=== PATIENT | female | born 1960 | race African-American/Black ===

== ENCOUNTER → 2016-08-23 | Outpatient (CLI) | payer BC ==
[2014-06-30 12:15] VITALS: BP 146/78
[~2016-08-23] MED LIST: CHLO500T53 PO; GABA-586 PO
--- NOTE | 2016-08-23 11:45 | RAD ---
Chest, 2 views, 08/23/2016: History: Tobacco abuse, fatigue, shortness of breath The heart size and pulmonary vascularity are normal. No pulmonary infiltrates are seen. There is no evidence of pleural fluid. Mild spurring is present in the spine. IMPRESSION: No acute cardiopulmonary abnormality is detected.
== END | disposition home or self-care (01) ==
LOC: DXRADRC 09:46
PROVIDERS: ATTEND Nurse Practitioner Family
DX: Z72.0 Tobacco use (principal); R53.83 Other fatigue; R06.02 Shortness of breath
CPT/HCPCS: 71020

== ENCOUNTER → 2017-05-22 | Outpatient (CLI) | payer BC ==
[2014-06-30 12:15] VITALS: BP 146/78
--- NOTE | 2017-05-23 08:37 | RAD ---
Indication: Chest tightness and shortness of air. Time of exam 1803 hours. No prior studies are available for comparison. FINDINGS: The heart size is normal. The lungs are clear. No pleural effusion or pneumothorax is identified. The pulmonary vascularity is normal. IMPRESSION: No acute abnormality detected.
== END | disposition home or self-care (01) ==
LOC: RAD 17:54
PROVIDERS: ATTEND Nurse Practitioner Family
DX: R06.2 Wheezing (principal); R07.89 Other chest pain; Z72.89 Other problems related to lifestyle; Z72.0 Tobacco use
CPT/HCPCS: 71020

== ENCOUNTER → 2019-08-07 | Outpatient (CLI) | payer BC ==
[2014-06-30 12:15] VITALS: BP 146/78
--- NOTE | 2019-08-07 19:18 | RAD ---
CHEST PA LATERAL Technique: PA and lateral views of the chest were obtained. Clinical History: Cough Comparison: May 22, 2017. Findings: The heart and pulmonary vasculature appear within normal limits. There is linear opacities in the lung bases left worse than right. The pleural margins are clear. Impression: Basal infiltrates could be discoid atelectasis or pneumonia. Electronically signed by: Leonardo Mcintosh III, MD (08/07/2019 7:15 PM) [id number]
== END | disposition home or self-care (01) ==
LOC: RAD 18:52
PROVIDERS: ATTEND Physician Assistant
DX: R91.8 Other nonspecific abnormal finding of lung field (principal)
CPT/HCPCS: 71046

== ENCOUNTER 2019-08-22 18:08 | Inpatient (IN) | payer BC ==
[~2019-08-22] VITALS: Ht 167.6 cm; Wt 79.4 kg
--- NOTE | 2019-08-22 18:11 | PHYS DOC ---
Past History Past Medical History: Anxiety, Bronchitis Smoking: Less than 1pk/day Adult General Chief Complaint Chief Complaint: SHORTNESS OF BREATH... " I ve been short of breath since August 06.. coughing, fever like... chills... Wheezing..... I hurt all over... I just feel bad.. can't walk a flight of stairs .. with out shortness of breath.. I do somke.. and was around my son and grandson who had = upper respiratory infections and had been in [place] but they came back before the .. they are all fine... 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 " HPI HPI Patient is a 58 year old female who presents with above hx and complaints of dyspnea, subjective fever, chills, non-productive cough, malaise, arthralgia, and myalgia. Pt. sent from Dr. Bangura office for a direct admit, but re- routed to ED for Eval. by Chilo [facility] Pt. also follow with Dr. Stein. Pt reports a upper respiratory complaints starting on August 06. Nonproductive cough, wheezing, malaise, congestion, sneezing, myalgia, arthralgia, and fatigue. Patient evaluated at the [facility] medical clinic on the August 06, no fever was found. Reportedly had some fluid behind TMs, but no erythema. Was started on Tamiflu for 5 days. Flu swabs at [facility] were negative. Patient does not get flu vaccinations. Patient has not had a Pneumovax. Patient's symptoms continued and followed with [facility] and was started on Biaxin. Pt. took it for 4 days, but it upset her stomach and seemed to cause a headache. Pt. stopped Biaxin, was started on Augmentin 875 twice a day.. She took Augmentin approximated 3 days, but it upset her stomach and made her nauseated. Pt. then presented to [place] on and got a shot of Rocephin and started on Levaquin 500 mg she has been on for the last 3 days. Pt. then presented to Dr. Starks office was then to be admitted. Patient denies any specific travel outside the [facility]. Has been in contact with grandson and son who had recently had upper respiratory infections in [place]. . Son and grandson had been in [place] for visit in July but returned prior to the 4th of this month. They have had no symptoms since return to [place]. Patient does smoke she has approximately 30 pack years. Has been told before she's had bronchitis in past. . She has not had a Pneumovax. Patient does not get flu vaccinations. 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 Pt. is very anxious about possible exposure to [place]-19 through work or Son or Grandson. Review of Systems Review of Systems Constitutional: Denies fever or chills [] Eyes: Denies change in visual acuity, redness, or eye pain [] HENT: Denies nasal congestion or sore throat [] Respiratory: Complains of a nonproductive cough, wheezing and shortness of breath [] Cardiovascular: No additional information not addressed in HPI [] GI: Denies abdominal pain, nausea, vomiting, bloody stools or diarrhea [] : Denies dysuria or hematuria [] Musculoskeletal: Denies back pain or joint pain [] Integument: Denies rash or skin lesions [] Neurologic: Denies headache, focal weakness or sensory changes [] Endocrine: Denies polyuria or polydipsia [] All other systems were reviewed and found to be within normal limits, except as documented in this note. Family History Family History Son and grandson had upper respiratory infections while in [place] in Jul. Current Medications Current Medications See nursing for home meds Allergies Allergies Allergies Coded Allergies Type Severity Reaction Last Updated Verified No Known Drug Allergies 06/30/14 No Physical Exam Physical Exam Constitutional: no acute distress, very anxious in appearance. [] HENT: Normocephalic, atraumatic, bilateral external ears normal, oropharynx moist, no oral exudates, nose mild nasal edema in both nasal drainage with clear rhinorrhea Eyes: PERRLA, EOMI, conjunctiva normal, no discharge. [] Neck: Normal range of motion, no tenderness, supple, no stridor. [] Cardiovascular: Bradycardia Heart rate regular rhythm, no murmur [] Lungs & Thorax: Bilateral breath sounds equal apex with few scattered wheezes on auscultation [] Abdomen: Bowel sounds normal, soft, no tenderness, no masses, no pulsatile masses. [] Skin: Warm, dry, no erythema, no rash. [] Back: No tenderness, no CVA tenderness. [] Extremities: No tenderness, no cyanosis, no clubbing, ROM intact, no edema. [No cording in legs Neurologic: Alert and oriented X 3, moves extremities on request, has distal sensory sensation, no focal deficits noted. [] Psychologic: Affect very anxious, judgement normal, mood normal. [] EKG EKG My interpretation EKG shows a sinus rhythm at 63 bpm. No findings acute STEMI of contralateral changes or acute morphology.[] Radiology/Procedures Radiology/Procedures [][address] [address] IMAGING REPORT Signed PATIENT: CARINA BARAKAT ACCOUNT: [id number] : 1960 LOCATION: [address] [place] [address] AGE: 58 SEX: F EXAM STATUS: ADM IN ORD. PHYSICIAN: JEREL ORNELAS MD REASON: Omni 350, 99ml IV.Intractable cough,dyspnea.Hx pneumonia, smoker PROCEDURE: CT ANGIOGRAPHY CHEST CT a chest with contrast dated 08/22/2019. No comparison available. CLINICAL INDICATION: Intractable cough and dyspnea. TECHNIQUE: Per continue his axial imaging the chest performed on the intravenous administration of 99 cc Omnipaque 350. Study performed as dedicated PE protocol with thin cut coronal MIPS 3-D reconstruction. One or more of the following individualized dose reduction techniques were utilized for this examination: 1. Automated exposure control 2. Adjustment of the mA and/or kV according to patient size 3. Use of iterative reconstruction technique. FINDINGS: Heart size within normal limits. No pericardial effusion. There is a low-density collection along the upper margin of the main pulmonary artery that measures 2.8 cm and Hounsfield value of 4, likely a prominent pericardial recess or a prominent pericardial cyst. No mediastinal, hilar or axillary lymphadenopathy. Contrast bolus is adequate. No evidence of central, lobar or segmental pulmonary embolus. Subsegmental branches are not well evaluated based on technique. Thyroid gland unremarkable. Central airways are patent. Linear bands of increased density in the left lower lobe, lingula and right middle lobe, likely scar or atelectasis. No consolidation or pleural effusion. No pneumothorax. Limited images of the upper abdomen are unremarkable. No acute bony abnormality. Multilevel spondylosis. IMPRESSION: 1. No evidence of central, lobar or segmental pulmonary embolus. 2. Mild patchy and linear bibasilar opacity, likely scar or atelectasis. Otherwise clear lungs. 3. There is a well-circumscribed low-density focus within the anterior superior mediastinum which is indeterminate but probably represents a prominent pericardial recess or pericardial cyst or duplication cyst. Electronically signed by: Denis Rowland MD (08/22/2019 11:02 PM) [id number] DICTATED AND SIGNED BY: DENIS ROWLAND MD DATE: 08/22/192301 CC: PAPI BANGURA MD; JEREL ORNELAS MD; ANGEL STEIN MD ~ [place] [address] IMAGING REPORT Signed PATIENT: CARINA BARAKAT ACCOUNT: [id number] : 1960 LOCATION: ER AGE: 58 SEX: F EXAM STATUS: REG ER ORD. PHYSICIAN: JEREL ORNELAS MD REASON: Dyspnea- Recent Dx Pneumonia and bronchitis PROCEDURE: CHEST PA & LATERAL Two-view chest dated 08/22/2019. Comparison made to 08/07/2019. CLINICAL INDICATION: Dyspnea. FINDINGS: PA and lateral views the chest were obtained. Heart and mediastinal contours are stable. Lungs are clear. No consolidation or pleural effusion. No pneumothorax. IMPRESSION: No acute radiographic abnormality. Electronically signed by: Denis Rowland MD (08/22/2019 8:48 PM) [id number] DICTATED AND SIGNED BY: DENIS ROWLAND MD DATE: 08/22/192047 CC: JEREL ORNELAS MD; ANGEL STEIN MD ~ Course & Med Decision Making Course & Med Decision Making Pertinent Labs and Imaging studies reviewed. (See chart for details) Patient is Dr. Starks for further evaluation and treatment. Patient was danielito eugenio on respiratory isolation. Hospital protocol. Impression: 1. Dyspnea 2. Cough 3. Viral syndrome 4. Bronchitis 5. Tobacco Use 6. Hx. Anxiety [] Dragon Disclaimer Dragon Disclaimer This electronic medical record was generated, in whole or in part, using a voice recognition dictation system. Departure Departure: Disposition: 01 HOME/RESIDENCE PRIOR TO ADM Condition: STABLE Referrals: ANGEL STEIN MD (PCP) Rosalba Disclaimer This chart was dictated in whole or in part using Voice Recognition software in a busy, high-work load, and often noisy Emergency Department environment. It may contain unintended and wholly unrecognized errors or omissions. Dragon Disclaimer This chart was dictated in whole or in part using Voice Recognition software in a busy, high-work load, and often noisy Emergency Department environment. It may contain unintended and wholly unrecognized errors or omissions. JEREL ORNELAS MD Aug 22, 2019 18:10
[2019-08-22] MEDS ORDERED: IV RINGERS SOLUTION,LACTATED 1,000 ML IV SCH (18:32)
[2019-08-22 19:07] LABS: BASO # 0.1 x10^3/uL (0.0-0.2); BASO % 1 % (0-3); EOS # 0.1 x10^3/uL (0.0-0.7); EOS % 2 % (0-3); HEMATOCRIT 41.6 % (36.0-47.0); HEMOGLOBIN 14.2 g/dL (12.0-15.5); LYMPH # 2.9 x10^3/uL (1.0-4.8); LYMPH % 43 % (24-48); MEAN CORPUSCULAR HEMOGLOBIN 32 pg (25-35); MEAN CORPUSCULAR HGB CONC 34 g/dL (31-37); MEAN CORPUSCULAR VOLUME 93 fL (79-100); MONO # 0.4 x10^3/uL (0.0-1.1); MONO % 6 % (0-9); NEUT # 3.2 x10^3uL (1.8-7.7); NEUT % 48 % (31-73); PLATELET COUNT 293 x10^3/uL (140-400); RED BLOOD COUNT 4.49 x10^6/uL (3.50-5.40); RED CELL DISTRIBUTION WIDTH 13.6 % (11.5-14.5); WHITE BLOOD COUNT 6.7 x10^3/uL (4.0-11.0)
[2019-08-22 19:16] LABS: CALCIUM 8.9 mg/dL (8.5-10.1); GFR 68.7; POTASSIUM 3.7 mmol/L (3.5-5.1)
[2019-08-22 19:27] LABS: ALBUMIN 3.6 g/dL (3.4-5.0); DIRECT BILIRUBIN 0.1 mg/dL (0.0-0.2); MAGNESIUM 1.9 mg/dL (1.8-2.4); TOTAL BILIRUBIN 0.4 mg/dL (0.2-1.0)
[2019-08-22 19:33] LABS: INFLUENZA A PATIENT NEGATIVE (NEGATIVE); INFLUENZA B PATIENT NEGATIVE (NEGATIVE)
[2019-08-22] MEDS ORDERED: IPRATRPIUM/ALBUTEROL 0.5/2.5MG 3 ML NEBU. NEB ONE (19:45)
[2019-08-22 19:50] LABS: BARBITURATES NEG (NEG); BENZODIAZEPINES NEG (NEG); CANNABINOIDS NEG (NEG); COCAINE NEG (NEG); METHADONE NEG (NEG); OPIATES NEG (NEG); PHENCYCLIDINE NEG (NEG)
[2019-08-22 19:56] LABS: AMPHETAMINE/METHAMPHETAMINE NEG (NEG)
[2019-08-22 20:33] LABS: BACTERIA,URINE 0 /HPF (0-FEW); BILIRUBIN,URINE NEG (NEG); CLARITY,URINE CLEAR; COLOR,URINE YELLOW; GLUCOSE,URINE NEG (NEG); NITRITE,URINE NEG (NEG); SQUAMOUS EPITHELIAL CELL,UR OCC /LPF; UROBILINOGEN,URINE 0.2 mg/dL (0.2 mg/dL)
--- NOTE | 2019-08-22 20:51 | RAD ---
Two-view chest dated 08/22/2019. Comparison made to 08/07/2019. CLINICAL INDICATION: Dyspnea. FINDINGS: PA and lateral views the chest were obtained. Heart and mediastinal contours are stable. Lungs are clear. No consolidation or pleural effusion. No pneumothorax. IMPRESSION: No acute radiographic abnormality. Electronically signed by: Denis Rowland MD (08/22/2019 8:48 PM) [id number]
[2019-08-22 21:41] LABS: BGAS PH 7.47 (7.35-7.45)
[2019-08-22] MEDS ORDERED: methylPREDNISolone SOD SUCC PF 125 MG/2 ML VIAL. IV ONE (22:00)
[2019-08-22] MEDS ORDERED: IOHEXOL 350 MG/ML 100 ML VIAL. IV ONE (22:15)
[2019-08-22] MEDS: LORazepam 1 MG TABLET PO SCH (22:41)
[2019-08-22] MEDS: ACETAMINOPHEN 325 MG TABLET PO PRN (22:42)
[2019-08-22] MEDS: ONDANSETRON PF 4 MG/2 ML VIAL. IVP PRN (22:42)
--- NOTE | 2019-08-22 23:04 | RAD ---
CT a chest with contrast dated 08/22/2019. No comparison available. CLINICAL INDICATION: Intractable cough and dyspnea. TECHNIQUE: Per continue his axial imaging the chest performed on the intravenous administration of 99 cc Omnipaque 350. Study performed as dedicated PE protocol with thin cut coronal MIPS 3-D reconstruction. One or more of the following individualized dose reduction techniques were utilized for this examination: 1. Automated exposure control 2. Adjustment of the mA and/or kV according to patient size 3. Use of iterative reconstruction technique. FINDINGS: Heart size within normal limits. No pericardial effusion. There is a low-density collection along the upper margin of the main pulmonary artery that measures 2.8 cm and Hounsfield value of 4, likely a prominent pericardial recess or a prominent pericardial cyst. No mediastinal, hilar or axillary lymphadenopathy. Contrast bolus is adequate. No evidence of central, lobar or segmental pulmonary embolus. Subsegmental branches are not well evaluated based on technique. Thyroid gland unremarkable. Central airways are patent. Linear bands of increased density in the left lower lobe, lingula and right middle lobe, likely scar or atelectasis. No consolidation or pleural effusion. No pneumothorax. Limited images of the upper abdomen are unremarkable. No acute bony abnormality. Multilevel spondylosis. IMPRESSION: 1. No evidence of central, lobar or segmental pulmonary embolus. 2. Mild patchy and linear bibasilar opacity, likely scar or atelectasis. Otherwise clear lungs. 3. There is a well-circumscribed low-density focus within the anterior superior mediastinum which is indeterminate but probably represents a prominent pericardial recess or pericardial cyst or duplication cyst. Electronically signed by: Denis Rowland MD (08/22/2019 11:02 PM) [id number]
--- NOTE | 2019-08-22 23:47 | EKG ---
[address] [address] Test Date: 2019-08-22 Test Time: 19:02:30 Pat Name: CARINA BARAKAT Department: Room: Gender: F Detective And Intelligence Analyst: : 1960 Requested By: JEREL ORNELAS Order Number: [id number] Reading MD: Measurements Intervals [place] Rate: 63 P: 0 NE: 130 QRS: 19 QRSD: 76 T: 4 QT: 416 QTc: 429 Interpretive Statements SINUS RHYTHM NO SPECIFIC ECG ABNORMALITIES RI6.01 No previous ECG available for comparison
--- NOTE | 2019-08-23 01:45 | NUR ---
The patient, CARINA BARAKAT, 58 y/o, F admitted by PAPI BANGURA MD, was given written information regarding hospital policies, unit procedures and contact persons. Pt arrived to room 119 via gurney accompanied by [facility] and nursing sup. Pt placed in airborne precautions for viral syndrome per order. Pt reports feeling severely fatigued over the past 3 weeks despite finishing a course of Tamiflu and ABT. Pt oriented to unit and room. Discussed POC, V/U. Call light in reach. Valuables were checked and logged.
[2019-08-23 01:53] VITALS: BP 134/79
[2019-08-23] MEDS: ACETAMINOPHEN 325 MG TABLET PO PRN ×3 (04:06→20:37)
[2019-08-23] MEDS ORDERED: NABU750T PO (04:33)
[2019-08-23] MEDS ORDERED: LEVO500T8 PO (04:33)
[2019-08-23] MEDS ORDERED: AMLO5TAB10 PO (04:33)
[2019-08-23] MEDS: IPRATRPIUM/ALBUTEROL 0.5/2.5MG 3 ML NEBU. NEB SCH ×4 (04:37→22:12)
[2019-08-23] MEDS: methylPREDNISolone SOD SUCC PF 40 MG/ML VIAL. IV SCH ×3 (05:34→20:37)
[2019-08-23 06:26] VITALS: BP 110/70
[2019-08-23 07:50] LABS: BASO % 1 % (0-3); EOS % 0 % (0-3); HEMATOCRIT 39.3 % (36.0-47.0); HEMOGLOBIN 13.6 g/dL (12.0-15.5); LYMPH % 16 % (24-48); MEAN CORPUSCULAR HEMOGLOBIN 32 pg (25-35); MEAN CORPUSCULAR HGB CONC 35 g/dL (31-37); MEAN CORPUSCULAR VOLUME 92 fL (79-100); MONO % 1 % (0-9); NEUT # 5.5 x10^3uL (1.8-7.7); NEUT % 83 % (31-73); PLATELET COUNT 283 x10^3/uL (140-400); RED BLOOD COUNT 4.29 x10^6/uL (3.50-5.40); RED CELL DISTRIBUTION WIDTH 13.1 % (11.5-14.5); WHITE BLOOD COUNT 6.6 x10^3/uL (4.0-11.0)
[2019-08-23 07:58] LABS: CALCIUM 8.6 mg/dL (8.5-10.1); CREATININE 1.1 mg/dL (0.6-1.0); GFR 61.5; POTASSIUM 3.8 mmol/L (3.5-5.1)
[2019-08-23] MEDS: OSELTAMIVIR 75 MG CAPSULE PO SCH ×2 (09:00→20:37)
[2019-08-23] MEDS ORDERED: FLU VAX QS 2019-20 (36MOS+)/PF 0.5 ML SYRINGE. VAX IM ONE (10:00)
--- NOTE | 2019-08-23 10:07 | PN ---
DATE: 08/23/2019 SUBJECTIVE: A 58-year-old -[place] female for the last 3 weeks has been feeling ill. She has been to primary care doctor's offices, Emergency Rooms, no one can find any particular aspect, but the patient says she has deteriorated to the point where she is having difficulty breathing and difficulty with just feeling tired and weak. She denies really any fever or direct cough and she was worked up extensively before admission here through the [facility] Emergency Room per their protocol and as far as we see on the chart, everything has been negative there. The patient was having difficulty in breathing and she was admitted for IV steroids and aggressive pulmonary toilet. A PCR was also performed in the office where she was initially evaluated by this physician. OBJECTIVE: VITAL SIGNS: Today, her blood pressure is 110/70, respirations 18, pulse 77, afebrile. GENERAL: The patient is alert and oriented. She says she feels a little better. Speech fluent, spontaneous, appropriate. LUNGS: Sounds diminished. Decreased primarily in that left lower lobe. CARDIOVASCULAR: Regular sinus rhythm. ABDOMEN: Soft, nontender. EXTREMITIES: No clubbing, cyanosis or edema. NEUROLOGIC: Stable. IMPRESSION AND PLAN: The patient otherwise will be monitored carefully. Continue on steroids, decrease breathing treatments to 3 times a day. Since the flu swabs have a mediocre sensitivity, we will start her on Tamiflu anyway to see. If that does not help her, make further evaluation on her as indicated and hopefully have her ready for discharge here soon. Her chest x-ray, CTA, and labs basically all were read normal. So it looks like some type of an asthmatic condition, bronchospasm and she was more short of breath than she is now and she needs to be further given aggressive pulmonary toilet as this has been going on for the last 3 weeks and getting progressively worse. PAPI BANGURA MD DR: KANDACE/faith JOB#: [id number] / [id number]
[2019-08-23 11:00] VITALS: BP 118/74
--- NOTE | 2019-08-23 11:35 | PDOC2 ---
CARDIAC CONSULT DATE OF CONSULT Date Of Consult DATE: 08/23/19 TIME: 11:26 REASON FOR CONSULT Reason for Consult SOB REFERRING PHYSICIAN Referring Physician Dr. Zavala SOURCE Source: Chart review, Patient HPI History of Present Illness The patient is a 58-year-old female who reports approximately 3 weeks of increasing fatigue and weakness as well as some shortness of breath and a nonproductive cough. She was initially evaluated in the emergency room and found no acute changes on her chest x-ray, a normal initial troponin and a d-dimer 0.30. She denies chest pain or dizziness. CT scan showed no acute infiltrates. It did show an indeterminate finding in the anterior superior mediastinum which could be consistent with a pericardial recess or possible pericardial cyst. The patient has been treated with pulmonary medications, steroids and is being started on Tamiflu. She states she is feeling mildly better today. Her rhythm has been stable sinus overnight. She has no acute ischemic EKG changes. PAST MEDICAL HISTORY Cardiovascular: HTN FAMILY HISTORY Family History: Hypertension SOCIAL HISTORY Smoke: <1 pack per day CURRENT MEDICATIONS Current Medications Current Medications Lactated Ringer's 1,000 ml @ 100 mls/hr Q10H IV Last administered on 08/22/19at 18:32; Start 08/22/19 at 18:32; Stop 08/23/19 at 04:31; Status DC Albuterol/ Ipratropium (Duoneb) 3 ml 1X ONCE NEB Last administered on 08/22/19at 19:38; Start 08/22/19 at 19:45; Stop 08/22/19 at 19:50; Status DC Methylprednisolone Sodium Succinate (SOLU-Medrol 125MG VIAL) 125 mg 1X ONCE IV Last administered on 08/22/19at 22:20; Start 08/22/19 at 22:00; Stop 08/22/19 at 22:14; Status DC Iohexol (Omnipaque 350 Mg/ml) 100 ml 1X ONCE IV Last administered on 08/22/19at 22:30; Start 08/22/19 at 22:15; Stop 08/22/19 at 22:16; Status DC Ondansetron HCl (Zofran) 4 mg PRN Q4HRS PRN IVP NAUSEA/VOMITING Last administered on 08/22/19at 22:42; Start 08/22/19 at 22:15; Stop 08/23/19 at 22:14 Acetaminophen (Tylenol) 650 mg PRN Q4HRS PRN PO FEVER Last administered on 08/23/19at 04:06; Start 08/22/19 at 22:15; Stop 08/23/19 at 22:14 Albuterol/ Ipratropium (Duoneb) 3 ml RTQID NEB Last administered on 08/23/19at 04:37; Start 08/23/19 at 08:00; Stop 08/24/19 at 07:59 Lorazepam (Ativan) 1 mg HS PO Last administered on 08/22/19at 22:41; Start 08/22/19 at 22:30 Methylprednisolone Sodium Succinate (SOLU-Medrol 40MG VIAL) 40 mg Q8HRS IV Last administered on 08/23/19at 05:34; Start 08/23/19 at 06:00 Influenza Virus Vaccine Quadrival (Afluria Quad 2019-20 (3yr Up) Syringe) 0.5 ml ONCE ONCE VAX IM ; Start 08/23/19 at 10:00; Stop 08/23/19 at 10:01; Status DC Oseltamivir Phosphate (Tamiflu) 75 mg BID PO ; Start 08/23/19 at 09:00; Stop 08/28/19 at 08:59 Active Scripts Active Reported Nabumetone 750 Mg Tablet 750 Mg PO PRN BID Levofloxacin 500 Mg Tablet 500 Mg PO DAILY 10 Days pt began on 08/19/19, has had 3 doses Amlodipine Besylate 5 Mg Tablet 5 Mg PO DAILY ALLERGIES Allergies: Coded Allergies: No Known Drug Allergies (Unverified , 06/30/14) ROS General: YES: Fatigue Respiratory: YES: Shortness of breath, SOB with excertion PHYSICAL EXAM General: mild distress HEENT: Atraumatic Lungs: Other (mildly decreased breath sounds) Heart: Regular rate Abdomen: Normal bowel sounds VITALS Vital Signs Vital Signs Date Time Temp Pulse Resp B/P (MAP) Pulse Ox O2 Delivery O2 Flow Rate FiO2 08/23/19 08:25 Room Air 08/23/19 06:26 98.4 77 18 110/70 (83) 99 LABS LABS Laboratory Tests Test 08/22/19 18:40 08/22/19 19:15 08/22/19 21:25 08/23/19 07:38 White Blood Count 6.7 x10^3/uL (4.0-11.0) 6.6 x10^3/uL (4.0-11.0) Red Blood Count 4.49 x10^6/uL (3.50-5.40) 4.29 x10^6/uL (3.50-5.40) Hemoglobin 14.2 g/dL (12.0-15.5) 13.6 g/dL (12.0-15.5) Hematocrit 41.6 % (36.0-47.0) 39.3 % (36.0-47.0) Mean Corpuscular Volume 93 fL (79-100) 92 fL (79-100) Mean Corpuscular Hemoglobin 32 pg (25-35) 32 pg (25-35) Mean Corpuscular Hemoglobin Concent 34 g/dL (31-37) 35 g/dL (31-37) Red Cell Distribution Width 13.6 % (11.5-14.5) 13.1 % (11.5-14.5) Platelet Count 293 x10^3/uL (140-400) 283 x10^3/uL (140-400) Neutrophils (%) (Auto) 48 % (31-73) 83 % (31-73) Lymphocytes (%) (Auto) 43 % (24-48) 16 % (24-48) Monocytes (%) (Auto) 6 % (0-9) 1 % (0-9) Eosinophils (%) (Auto) 2 % (0-3) 0 % (0-3) Basophils (%) (Auto) 1 % (0-3) 1 % (0-3) Neutrophils # (Auto) 3.2 x10^3uL (1.8-7.7) 5.5 x10^3uL (1.8-7.7) Lymphocytes # (Auto) 2.9 x10^3/uL (1.0-4.8) 1.0 x10^3/uL (1.0-4.8) Monocytes # (Auto) 0.4 x10^3/uL (0.0-1.1) 0.0 x10^3/uL (0.0-1.1) Eosinophils # (Auto) 0.1 x10^3/uL (0.0-0.7) 0.0 x10^3/uL (0.0-0.7) Basophils # (Auto) 0.1 x10^3/uL (0.0-0.2) 0.0 x10^3/uL (0.0-0.2) Prothrombin Time 10.0 SEC (9.4-11.4) Prothromb Time International Ratio 1.0 (0.9-1.1) Activated Partial Thromboplast Time 27 SEC (23-33) D-Dimer (Leigha) 0.30 mg/L (0.00-0.50) Sodium Level 142 mmol/L (136-145) 138 mmol/L (136-145) Potassium Level 3.7 mmol/L (3.5-5.1) 3.8 mmol/L (3.5-5.1) Chloride Level 106 mmol/L (98-107) 104 mmol/L (98-107) Carbon Dioxide Level 28 mmol/L (21-32) 26 mmol/L (21-32) Anion Gap 8 (6-14) 8 (6-14) Blood Urea Nitrogen 17 mg/dL (7-20) 13 mg/dL (7-20) Creatinine 1.0 mg/dL (0.6-1.0) 1.1 mg/dL (0.6-1.0) Estimated GFR (Cockcroft-Gault) 68.7 61.5 Glucose Level 97 mg/dL (70-99) 150 mg/dL (70-99) Calcium Level 8.9 mg/dL (8.5-10.1) 8.6 mg/dL (8.5-10.1) Magnesium Level 1.9 mg/dL (1.8-2.4) Total Bilirubin 0.4 mg/dL (0.2-1.0) Direct Bilirubin 0.1 mg/dL (0.0-0.2) Aspartate Amino Transf (AST/SGOT) 9 U/L (15-37) Alanine Aminotransferase (ALT/SGPT) 14 U/L (14-59) Alkaline Phosphatase 53 U/L (46-116) Creatine Kinase 53 U/L (26-192) Troponin I Quantitative < 0.017 ng/mL (0-0.055) XC-Itp-T-Type Natriuretic Peptide 49 pg/mL (0-124) Total Protein 7.0 g/dL (6.4-8.2) Albumin 3.6 g/dL (3.4-5.0) Lipase 23 U/L (73-393) Influenza Type A (Rapid) Negative (NEGATIVE) Influenza Type B (Rapid) Negative (NEGATIVE) Urine Collection Type Unknown Urine Color Yellow Urine Clarity Clear Urine pH 6.5 Urine Specific Skillman 1.025 Urine Protein Neg (NEG-TRACE) Urine Glucose (UA) Neg mg/dL (NEG) Urine Ketones (Stick) Neg mg/dL (NEG) Urine Blood Mod (NEG) Urine Nitrite Neg (NEG) Urine Bilirubin Neg (NEG) Urine Urobilinogen Dipstick 0.2 mg/dL (0.2 mg/dL) Urine Leukocyte Esterase Neg (NEG) Urine RBC 3-5 /HPF (0-2) Urine WBC 1-4 /HPF (0-4) Urine Squamous Epithelial Cells Occ /LPF Urine Bacteria 0 /HPF (0-FEW) Urine Mucus Mod /LPF Lactic Acid Level 0.9 mmol/L (0.4-2.0) Urine Opiates Screen Neg (NEG) Urine Methadone Screen Neg (NEG) Urine Barbiturates Neg (NEG) Urine Phencyclidine Screen Neg (NEG) Urine Amphetamine/Methamphetamine Neg (NEG) Urine Benzodiazepines Screen Neg (NEG) Urine Cocaine Screen Neg (NEG) Urine Cannabinoids Screen Neg (NEG) Urine Ethyl Alcohol Neg (NEG) Blood Gas pH 7.47 (7.35-7.45) Blood Gas PCO2 32 mmHg (35-45) Blood Gas PO2 99 mmHg (80-100) Blood Gas HCO3 23 mmol/L (22-26) Arterial Bld O2 Saturation (Calc) 98 % (92-99) FiO2 21 % IMAGES IMAGES Chest x-ray with no acute findings. CT chest scan with no acute findings. EKG EKG EKG shows a sinus rhythm with no acute ischemic changes. ASSESSMENT/PLAN Assessment/Plan 1. Progressive episodes of weakness and shortness of breath as outlined above. Patient denies any chest pain and has no acute ischemic EKG changes or elevated troponin. D-dimer is normal. Agree with treatment for probable pulmonary disease including steroids, pulmonary treatments and Tamiflu. Covid19 discussion as per the ER doctor's note. From a cardiac viewpoint would recheck troponins. I believe an echocardiogram is reasonable but could be done as an outpatient if the patient continues to improve. 2. Mildly abnormal CT chest scan with a possible pericardial recess or pericardial cyst. No acute intervention is needed. Would check a routine echo probably as an outpatient as above. Would recheck a CT chest scan and 4 to 6 months to monitor for any changes. Thank you for allowing us to participate in the care of your patient. TANJA MENDIOLA MD Aug 23, 2019 11:35
--- NOTE | 2019-08-23 13:15 | NUR ---
IP: patient diagnosed with viral syndrome treating with tamiflu, requires droplet precautions until 5 days of treatment and no fever x24 hours whichever is longer.
[2019-08-23] MEDS: ONDANSETRON PF 4 MG/2 ML VIAL. IVP PRN ×2 (14:48→20:37)
[2019-08-23 15:21] VITALS: BP 115/78
[2019-08-23 19:06] VITALS: BP 107/53
[2019-08-23] MEDS: LORazepam 1 MG TABLET PO SCH (20:37)
[2019-08-23 23:15] VITALS: BP 118/61
[2019-08-24 05:20] VITALS: BP 102/62
[2019-08-24] MEDS ORDERED: ALBUTEROL SULFATE 2.5 MG/3 ML NEBU. NEB PRN (06:00)
[2019-08-24] MEDS: methylPREDNISolone SOD SUCC PF 40 MG/ML VIAL. IV SCH ×2 (06:16→21:01)
[2019-08-24] MEDS: OSELTAMIVIR 75 MG CAPSULE PO SCH ×2 (08:32→21:01)
--- NOTE | 2019-08-24 10:46 | NUR ---
Patient compliant with assessment and medication. Patient consumed majority of her breakfast. Patient has no further needs at this time.
[2019-08-24 11:47] VITALS: BP 121/68
[2019-08-24 15:47] VITALS: BP 121/68
[2019-08-24 20:26] VITALS: BP 106/64
[2019-08-24] MEDS: LORazepam 1 MG TABLET PO SCH (21:01)
--- NOTE | 2019-08-24 23:55 | PN ---
DATE: SUBJECTIVE: A 58-year-old female in with acute exacerbation of COPD, hypoxia, dyspnea. The patient is resting comfortably, says she feels a little better today, able to take a deep breath. OBJECTIVE: VITAL SIGNS: Blood pressure 120/80, respiratory rate 20, pulse 90, afebrile. GENERAL: The patient is alert and oriented. LUNGS: Diminished, but clear than they have been, some decreased breath sounds in the right lower lobe, otherwise, markedly improved. CARDIOVASCULAR: Regular sinus rhythm. ABDOMEN: Soft, nontender. EXTREMITIES: No clubbing, cyanosis or edema. NEUROLOGIC: Intact. IMPRESSION: Acute exacerbation of chronic obstructive pulmonary disease, dyspnea. PLAN: As above. Continue with tapering down on Solu-Medrol and hopefully ready for discharge here. PAPI BANGURA MD DR: KANDACE/faith JOB#: [id number] / [id number]
[2019-08-25 06:05] VITALS: BP 106/54
[2019-08-25] MEDS: methylPREDNISolone SOD SUCC PF 40 MG/ML VIAL. IV SCH (08:43)
[2019-08-25] MEDS: OSELTAMIVIR 75 MG CAPSULE PO SCH (08:43)
[2019-08-25 12:03] VITALS: BP 103/74
[2019-08-25] MEDS ORDERED: IPRA3AMP29 NEB (12:28)
[2019-08-25] MEDS ORDERED: PRED-220 PO (12:28)
--- NOTE | 2019-08-25 13:00 | DS ---
DATE OF DISCHARGE: HOSPITAL COURSE: She is a 58-year-old female in with acute respiratory failure with difficulty, has seen several medical facilities without much success. She had difficulty breathing, using accessory muscles. She was getting fatigued and lethargic. As a result of this, the patient was admitted to the hospital and placed on IV steroids, aggressive pulmonary toilet. She made excellent progress during the rest of her hospitalization and the like. The patient had pericardial recess or pericardial cyst or duplication cyst for which an echocardiogram was ordered, but unavailable due to scheduling here inpatient. In any case, the patient made good progress during the rest of her hospitalization. The echocardiogram was scheduled as an outpatient and will follow up accordingly on her. IMPRESSION: Acute respiratory failure, severe bronchospasm and generalized weakness, failure to thrive. The patient will be discharged home. Follow up as an outpatient, tapering dose of prednisone as well as nebulizer treatments for her will continue. She will be off work for another 2 weeks per her supervisor edging's request. Regular diet, decreased activity, and see [facility]. PAPI BANGURA MD DR: KANDACE/faith JOB#: [id number] / [id number]
--- NOTE | 2019-08-25 13:40 | NUR ---
Patient signed discharged paperwork after discission. Patient IV discontinued , dressing applied. Patient left with a smooth steady gait.
== END 2019-08-25 13:44 | disposition home or self-care (01) | DRG 189 ==
LOC: ER 18:08 → 1 SOUTH 22:00
PROVIDERS: ADMIT Family Medicine; ATTEND Family Medicine
DX: J96.01 Acute respiratory failure with hypoxia (principal); J98.11 Atelectasis; J44.1 Chronic obstructive pulmonary disease with (acute) exacerbation; F41.9 Anxiety disorder, unspecified; F17.210 Nicotine dependence, cigarettes, uncomplicated; B34.9 Viral infection, unspecified; I10 Essential (primary) hypertension; R62.7 Adult failure to thrive; Z87.01 Personal history of pneumonia (recurrent); Z82.49 Family history of ischemic heart disease and other diseases of the circulatory system; Z68.28 Body mass index [BMI] 28.0-28.9, adult
CPT/HCPCS: 36415; 36600; 71046; 71275; 80048; 80076; 80307; 81001; 82550; 82803; 83605; 83690; 83735; 83880; 84443; 84484; 85025; 85379; 85610; 85730; 87040; 87804; 93005; 94640; J2405; J2920; J2930; J7120; Q9967